=== PATIENT | female | born 1980 | race Caucasian/White ===

== ENCOUNTER 2017-07-16 13:27 | Emergency (ER) | payer BC ==
[2017-07-16 13:49] VITALS: BP 103/66
--- NOTE | 2017-07-16 15:38 | UC ---
Skin Complaint HPI - History of Current Complaint Chief Complaint: UCLowerExtremity Time Seen by Provider: 07/16/17 15:07 Stated Complaint: FOOT COMPLAINT Hx Obtained From: Patient Hx Last Menstrual Period: 06/27/17 Onset/Duration: Gradual Onset - returned from [place] 2 weeks ago and had very dry , cracked heels. has been using lotion and then fungal cream which helps the itch but not the dryness. Location: Foot (Right), Foot (Left) - sole Aggravating Factor(s): Nothing Alleviating Factor(s): Nothing Associated Signs & Symptoms: Positive: Negative - Allergy/Home Medications Allergies/Adverse Reactions: Allergies Allergy/AdvReac Type Severity Reaction Status Date / Time No Known Allergies Allergy Verified 09/21/16 08:47 Home Medications: Home Medications Calcium 500 mg PO 07/16/17 [History] Cholecalciferol [Vitamin D] 1,000 unit PO 07/16/17 [History] Review of Systems Constitutional: Negative Respiratory: Negative Cardiovascular: Negative Neurological: Negative Psychological: Negative Is Patient Immunocompromised?: No All Other Systems Reviewed And Are Negative: Yes PMH/Surg Hx/FS Hx/Imm Hx Previously Healthy: Yes - Surgical History Surgical History: Yes Surgery Procedure, Year, and Place: GALLBLADDER 2006 - Family History Known Family History: Positive: None - Social History Occupation: Employed Full-time - microbiology Lives: With Family Alcohol Use: Occasionally Substance Use Type: None Smoking Status (MU): Never Smoked Tobacco Physical Exam Triage Information Reviewed: Yes Appearance: Well-Appearing, No Pain Distress, Well-Nourished Vital Signs: Initial Vital Signs Temp 97.7 F 07/16/17 13:46 Pulse 65 07/16/17 13:46 Resp 18 07/16/17 13:46 BP 103/66 07/16/17 13:46 Pulse Ox 100 07/16/17 13:46 Vital Signs Reviewed: Yes Eyes: Positive: Conjunctiva Clear Respiratory Exam: Normal Cardiovascular Exam: Normal Musculoskeletal Exam: Normal Psychological Exam: Normal Skin: Positive: Other - very dry heels bilaterally-tino on perimeters, arch abit dry, no breakdown between or on toes. mild erythema Course/Dx - Differential Diagnoses - Skin Complaint Differential Diagnoses: Cellulitis, Contact Dermatitis, Eczema, Other - fungal infection dry skin - Diagnoses Provider Diagnoses: fungal skin infection Discharge - Discharge Plan Condition: Stable Disposition: HOME Prescriptions: Clotrimazole/Betamethasone* [Lotrisone Cream*] 1 applic TOPICAL BID #1 tube Patient Education Materials: Athlete's Foot (ED) Referrals: No Primary Care Phys,NOPCP [Primary Care Provider] - Additional Instructions: apply prescription cream as directed use CeraVe cream for moiturizing skin return if no better 1 week
== END 2017-07-16 15:46 | disposition home or self-care (01) ==
LOC: UCEAST 13:27
DX: B35.3 Tinea pedis (principal); Z90.49 Acquired absence of other specified parts of digestive tract
CPT/HCPCS: 99212; G0463